=== PATIENT | female | born 1950 | race African-American/Black ===

== ENCOUNTER 2019-03-24 20:40 | Emergency (ER) | payer MEDICARE, OTHER ==
[~2019-03-24] VITALS: Ht 167.6 cm; Wt 66.0 kg
[~2019-03-24 20:40] MED LIST: SIMBACORT
[2019-03-24] MEDS ORDERED: ONDANSETRON HCL 4MG/2ML INJ IV STA (23:21)
[2019-03-24] MEDS ORDERED: MORPHINE SULFATE 4 MG/ML CPJ (NOT FOR IM USE) IV STA (23:21)
[2019-03-25] MEDS ORDERED: ONDANSETRON HCL 4MG/2ML INJ IV STA (02:02)
[2019-03-25] MEDS ORDERED: FENTANYL CITRATE/PF 50MCG/ML 2ML VIAL IV ONE (02:15)
[2019-03-25 04:43] VITALS: BP 102/69
== END 2019-03-25 05:00 ==
LOC: ER 20:40
DX: S82.54XA Nondisplaced fracture of medial malleolus of right tibia, initial encounter for closed fracture (principal); J45.909 Unspecified asthma, uncomplicated; Z88.5 Allergy status to narcotic agent; Z88.2 Allergy status to sulfonamides; W01.0XXA Fall on same level from slipping, tripping and stumbling without subsequent striking against object, initial encounter; Y93.89 Activity, other specified; Y92.018 Other place in single-family (private) house as the place of occurrence of the external cause
CPT/HCPCS: 29515; 73590; 73610; 96374; 96375; 96376; 99283; J2270; J2405; J3010; J7040

== ENCOUNTER 2023-08-16 15:50 | Emergency (ER) | payer OTHER ==
[~2023-08-16] VITALS: Ht 162.6 cm; Wt 45.0 kg
[~2023-08-16 15:50] MED LIST changes: +ALBU6.7H3 INH; +MED4 MT; +PULM50 HHN
[2023-08-16] MEDS ORDERED: SODIUM CHLORIDE 0.9% 1,000 ML IV ONE ×2 (16:30→18:45)
[2023-08-16 17:30] LABS: HEMOGLOBIN. 12.7 g/dL (12.0-16.0); MEAN CORPUSCULAR HEMOGLOBIN 30.5 pg (28.0-32.0); MEAN CORPUSCULAR HGB CONC 33.4 g/dL (31.0-37.0); MEAN CORPUSCULAR VOLUME 91.3 fL (81.0-99.0); MEAN PLATELET VOLUME 7.3 fl (7.4-10.4); PLATELET 223 x1000/uL (130-400); RED BLOOD CELL COUNT 4.16 mill/uL (4.2-5.4); WHITE BLOOD COUNT 3.8 x1000/uL (4.5-11.0)
[2023-08-16 17:33] LABS: DIFFERENTIAL COMMENT 1
[2023-08-16 17:42] LABS: CHLORIDE 97 mEq/L (98-107); INDEX HEMOLYSI 2 (1-3); INDEX ICTERIC 1 (1-4); INDEX LIPEMIC 1 (1-3); POTASSIUM 3.5 mEq/L (3.5-5.1); SODIUM 142 mEq/L (136-145)
[2023-08-16 17:45] LABS: INR 0.9; PROTHROMBIN TIME 9.8 sec (9.6-11.0)
[2023-08-16 17:50] LABS: ALANINE AMINOTRANSFERASE 20 IU/L (13-61); ALBUMIN 3.4 g/dL (3.4-5.0); ASPARTATE AMINOTRANSFERASE 22 IU/L (15-37); BILIRUBIN TOTAL 0.2 mg/dL (0.1-1.0); CALCIUM 9.6 mg/dL (8.5-10.1); CARBON DIOXIDE 38 mEq/L (21-32); CREATININE 0.7 mg/dL (0.6-1.3); GLUCOSE 114 mg/dL (70-105); PROTEIN TOTAL 6.7 g/dL (6.0-8.3); TROPONIN I HIGH SENSITIVITY 7 ng/L (<54); UREA NITROGEN BLOOD 8 mg/dL (7-21)
[2023-08-16 17:52] LABS: PLATELET ESTIMATE NORMAL
[2023-08-16 18:22] LABS: CLARITY URINE CLEAR (CLEAR); COLOR URINE YELLOW (YELLOW); GLUCOSE URINE NEGATIVE (NEGATIVE); KETONES URINE TRACE (NEGATIVE); LEUKOCYTE ESTERASE URINE NEGATIVE (NEGATIVE); NITRITE URINE NEGATIVE (NEGATIVE); OCCULT BLOOD URINE NEGATIVE (NEGATIVE); PH URINE 6.5 (4.5-8.0); PROTEIN URINE NEGATIVE (NEGATIVE); SPECIFIC GRAVITY URINE 1.018 (1.005-1.030)
[2023-08-16 18:25] LABS: BACTERIA URINE NONE SEEN; SQUAMOUS EPITHELIAL CELL URINE 1+ /lpf (RARE/1+); WBC URINE 0-2 /hpf (0-2); YEAST URINE NONE SEEN
[2023-08-16] MEDS ORDERED: METHYLPREDNISOLONE SOD SUCC 125MG/2ML (ACT-O-VIAL) IV STA (18:44)
[2023-08-16] MEDS ORDERED: AZITHROMYCIN 500 MG TABLET PO STA (18:44)
[2023-08-16] MEDS ORDERED: ALBUTEROL (0.083%) 2.5MG/3ML NEB HHN STA (18:44)
[2023-08-16] MEDS ORDERED: IPRATROPIUM BROMIDE (0.02%) 0.5MG/2.5ML NEB HHN STA (18:44)
[2023-08-16 19:19] VITALS: TEMP 98.6
[2023-08-16] MEDS ORDERED: IPRATROPIUM BROMIDE (0.02%) 0.5MG/2.5ML NEB ONE (21:13)
[2023-08-16] MEDS ORDERED: ALBUTEROL (0.083%) 2.5MG/3ML NEB ONE (21:13)
[2023-08-16 21:21] VITALS: PULSE 101; RESP 19; O2SAT 97
[2023-08-16 22:40] VITALS: BP 123/53; PULSE 104; RESP 14
== END 2023-08-16 23:01 | disposition admitted as inpatient to this hospital (09) ==
LOC: ER 15:50
DX: R53.1 Weakness (principal); R06.02 Shortness of breath; J44.9 Chronic obstructive pulmonary disease, unspecified; J44.1 Chronic obstructive pulmonary disease with (acute) exacerbation; Z88.2 Allergy status to sulfonamides
CPT/HCPCS: 99285; 96374; 71045; 96361; 80053; 81003; 85025; 85610; 84484; 36415; 72170; 94640; 93005; J2930; J7030

== ENCOUNTER 2023-10-29 16:00 | Emergency (ER) | payer OTHER ==
[~2023-10-29] VITALS: Ht 162.6 cm; Wt 60.0 kg
[2023-10-29] MEDS ORDERED: METHYLPREDNISOLONE SOD SUCC 125MG/2ML (ACT-O-VIAL) IV STA (16:17)
[2023-10-29] MEDS ORDERED: ALBUTEROL (0.083%) 2.5MG/3ML NEB HHN STA (16:17)
[2023-10-29] MEDS ORDERED: IPRATROPIUM BROMIDE (0.02%) 0.5MG/2.5ML NEB HHN STA (16:17)
[2023-10-29] MEDS ORDERED: CEFTRIAXONE 1GM PREMIX 50 ML IV ONE (16:30)
[2023-10-29 18:11] LABS: BASOPHILS % 0.5 % (0.0-2.0); EOSINOPHILS % 2.6 % (0.0-5.0); HEMATOCRIT. 28.4 % (36.0-48.0); HEMOGLOBIN. 9.6 g/dL (12.0-16.0); LYMPHOCYTES % 16.3 % (20.0-50.0); MEAN CORPUSCULAR HEMOGLOBIN 31.9 pg (28.0-32.0); MEAN CORPUSCULAR HGB CONC 33.8 g/dL (31.0-37.0); MEAN CORPUSCULAR VOLUME 94.4 fL (81.0-99.0); MEAN PLATELET VOLUME 6.7 fl (7.4-10.4); MONOCYTES % 7.1 % (2.0-8.0); NEUTROPHILS % 73.5 % (40.0-76.0); PLATELET 246 x1000/uL (130-400); RED BLOOD CELL COUNT 3.01 mill/uL (4.2-5.4); RED CELL DISTRIBUTION WIDTH 13.4 % (11.6-14.6); WHITE BLOOD COUNT 5.7 x1000/uL (4.5-11.0)
[2023-10-29 18:23] LABS: ALANINE AMINOTRANSFERASE 15 IU/L (10-49); ASPARTATE AMINOTRANSFERASE 23 IU/L (<34); BILIRUBIN TOTAL 0.2 mg/dL (0.1-1.0); CALCIUM 9.5 mg/dL (8.7-10.4); CARBON DIOXIDE 39 mEq/L (21-32); CHLORIDE 98 mEq/L (98-107); CREATININE 0.5 mg/dL (0.6-1.0); GLUCOSE 151 mg/dL (70-105); POTASSIUM 3.9 mEq/L (3.5-5.1); PROTEIN TOTAL 6.3 g/dL (6.0-8.3); SODIUM 140 mEq/L (136-145); TROPONIN I HIGH SENSITIVITY 9 ng/L (3.0-34); UREA NITROGEN BLOOD 12 mg/dL (9-23)
[2023-10-29 19:48] VITALS: PULSE 120; RESP 20; O2SAT 99
[2023-10-29] MEDS: IPRATROPIUM BROMIDE (0.02%) 0.5MG/2.5ML NEB HHN NR (19:48)
[2023-10-29] MEDS: ALBUTEROL (0.083%) 2.5MG/3ML NEB HHN NR (19:48)
[2023-10-29] MEDS: CEFTRIAXONE 1GM PREMIX 50 ML IV NR (21:34)
[2023-10-29] MEDS: METHYLPREDNISOLONE SOD SUCC 125MG/2ML (ACT-O-VIAL) IV NR (21:34)
[2023-10-29] MEDS: SODIUM CHLORIDE 0.9% 1,000 ML IV ONE (21:35)
[2023-10-29 23:20] VITALS: PULSE 84; RESP 20; O2SAT 97
[2023-10-29] MEDS: ALBUTEROL (0.083%) 2.5MG/3ML NEB HHN ONE (23:20)
[2023-10-30] MEDS: HALOPERIDOL LACTATE 5MG/ML VIAL IM ONE (00:45)
[2023-10-30] MEDS ORDERED: IOHEXOL-350 100 ML BOTTLE ONE (03:04)
[2023-10-30 04:52] VITALS: BP 141/88; TEMP 98.2
[2023-10-30 05:23] VITALS: PULSE 92; RESP 20; O2SAT 98
[2023-10-30] MEDS: ALBUTEROL 6.7GM HFA INHALER ORI ONE (05:23)
== END 2023-10-30 05:26 | disposition short-term general hospital (02) ==
LOC: ER 16:00 → CANBEDREQ 10-30 04:47 → ER 10-30 05:26
DX: J44.1 Chronic obstructive pulmonary disease with (acute) exacerbation (principal); R06.02 Shortness of breath; I10 Essential (primary) hypertension; Z20.822 Contact with and (suspected) exposure to COVID-19
CPT/HCPCS: 99291; 96365; 71045; 96375; 80053; 83880; 83605; 85025; 85379; 87040; 84484; 36415; 93005; 94644; 71275; 87426; 87804 ×2; J0696; J2930; J7030; Q9967; 87420; 94640